=== PATIENT | female | born 1965 ===

== ENCOUNTER 2025-05-28 15:51 | Outpatient (CLI) | payer MEDICAID ==
--- NOTE | 2025-06-02 10:20 | DVHSR ---
APPROVED REPORT EXAM: LIMITED Two-dimensional and M-mode echocardiogram with Doppler and color Doppler. RISK FACTORS Obesity: DIMENSIONS LVDd4.8 (3.8-5.7cm)LA (2D)3.3 (1.9-4.0cm)Aortic Root3.1 (2.0-3.7cm) LVDs3.4 (2.5-4.0cm)LA (MM) (1.9-4.0cm)Aortic Cusp Exc1.8 (1.5-2.0cm) EF (%) 57.0 (55-70%)Rt. Atrium3.4 (1.9-4.0cm)Asc. Aorta cm IVSd1.0 (0.7-1.1cm)RV (D) (1.8-2.4cm) PWd1.1 (0.7-1.1cm) Mitral Valve MitralMitral Stenosis E wave1.00m/sMV Mean GR.mmHg A wave0.80m/sMV Peak GR.mmHg E/A ratio1.32D MVAcm2 Aortic Valve Aortic ValveAortic Stenosis V11.00m/Kylah Mean GR.6mmHg V21.60m/Kylah Peak GR.11mmHg LVOT Diameter2.2 (1.8-2.4cm)Doppler AVA2.37cm2 LEFT VENTRICLE The left ventricle is normal size. The left ventricle is normal in structure and function. The Ejection Fraction is within normal limits. RIGHT VENTRICLE The right ventricle is normal size. ATRIA The left atrial size is normal. The right atrium size is normal. The interatrial septum is intact with no evidence for an atrial septal defect. MITRAL VALVE The mitral valve is normal in structure and function. There is no mitral valve regurgitation noted. PULMONIC VALVE The pulmonic valve is not well visualized. TRICUSPID VALVE The tricuspid valve is grossly normal. AORTIC VALVE The aortic valve opens well. No aortic regurgitation is present. GREAT VESSELS The aortic root is normal size. PERICARDIAL EFFUSION There is no pericardial effusion. Other Information Quality : Technically LimitedRhythm : Technically limited study due to body habitus. Conclusion EF >55%
== END 2025-05-28 17:00 | disposition home or self-care (01) ==
LOC: Rad HDHVI 15:51
PROVIDERS: ATTEND Internal Medicine Cardiovascular Disease
DX: R94.31 Abnormal electrocardiogram [ECG] [EKG] (principal)
CPT/HCPCS: 93306

== ENCOUNTER 2025-06-10 08:45 | Outpatient (CLI) | payer MEDICAID ==
[~2025-06-10] VITALS: Ht 154.9 cm; Wt 93.9 kg
--- NOTE | 2025-06-12 16:06 | DVHSR ---
APPROVED REPORT Exam: Nuclear Stress Test Indication: Abnormal EKG Ht: 5 ft 1 in Wt: 207 lbs BSA: 1.92 m2 HR: 54 bpm BP: 120/67 mmHg BMI: 39.10 Rhythm: Bradycardia Medical History Medical History: HTN, Hypercholesterolemia, Diabetes, Bradycardia Medications: Aspirin, Atorvastatin, Losartan, Metformin, Jardiance, Potassium Allergies: No known drug allergies Cardiac Risk Factors: Family Hx of CAD Stress Test Details Stress Test: Exercise stress testing was performed using a Mohit protocol. HR Resting HR: 54 bpm Max Heart Rate (APMHR): 159.191022 bpm Max HR Achieved: 150 bpm Target HR (85% APMHR): 135.470834 bpm % of APMHR: 94.34 Recovery HR: 96 bpm HR response to stress: Normal HR response to stress BP Resting BP: 120/67 mmHg Max BP: 166/71 mmHg Recovery BP: 153/70 mmHg BP response to stress: Normal blood pressure response to stress. ECG Resting ECG: Sinus Bradycardia Stress ECG: Sinus Tachycardia Arrhythmia: PAC Recovery ECG: Sinus Rhythm Clinical Reason for Termination: target HR achieved Stress Symptoms: fatigue Exercise duration: 4 min 50 sec Exercise capacity: 7.00 METs Stress ECG Conclusion NON ISCHEMIC CLINICAL RESPONSE NON ISCHEMIC ECG RESPONSE NON ISCHEMIC CARDIOLITE IMAGES EF >55% NM EXAM: Myocardial Perfusion REST/STRESS Imaging Protocol: Rest Tc-99m/Stress Tc-99m 1 day Resting Data Rest SPECT myocardial perfusion imaging was performed in supine position 30 minutes following the intravenous injection of 10.36 mCi of Tc-99m Sestamibi. Time of rest injection: 902 Date: 06/10/2025 Time of rest imagin Date: 06/10/2025 Administration Route: IV Administration Site: Left AC Exercise Stress At peak stress, the patient was injected intravenously with 32.8mCi of Tc-99m Sestamibi. Time of stress injection: 1027 Date: 06/10/2025 Time of stress imagin Date: 06/10/2025 Administration Route: IV Administration Site: Left AC Heart Rate at time of stress injection: 148 bpm. Patient continued to exercise for 1 minute(s). Gated Stress SPECT was performed 15 minutes after stress injection. The images were gated to evaluate regional wall motion and calculate left ventricular ejection fraction. Comments Cardiolite injection at 3 minutes, 38 seconds into test. Nuclear Conclusion NON ISCHEMIC CLINICAL RESPONSE NON ISCHEMIC ECG RESPONSE NON ISCHEMIC CARDIOLITE IMAGES EF >55%
== END 2025-06-10 17:00 | disposition home or self-care (01) ==
LOC: Rad HDHVI 08:45
PROVIDERS: ATTEND Internal Medicine Cardiovascular Disease
DX: Z01.810 Encounter for preprocedural cardiovascular examination (principal); I49.1 Atrial premature depolarization; R00.1 Bradycardia, unspecified; I10 Essential (primary) hypertension; R94.31 Abnormal electrocardiogram [ECG] [EKG]; E78.00 Pure hypercholesterolemia, unspecified; E11.9 Type 2 diabetes mellitus without complications; Z82.49 Family history of ischemic heart disease and other diseases of the circulatory system; R00.0 Tachycardia, unspecified
CPT/HCPCS: 78452; 93017; A9500; 96374

== ENCOUNTER 2025-07-15 12:54 | Outpatient (CLI) | payer MEDICAID | END 2025-07-15 17:00 | disposition home or self-care (01) | LOC: Rad HDHVI 12:54 | PROVIDERS: ATTEND Internal Medicine Cardiovascular Disease | DX: R94.31 Abnormal electrocardiogram [ECG] [EKG] (principal) | CPT/HCPCS: 93880 ==